=== PATIENT | male | born 1980 | race Caucasian/White ===

== ENCOUNTER 2020-09-16 13:47 | Inpatient (IN) | payer OTHER, SELFPAY ==
[2020-09-16] VITALS (7 sets, daily range): BP systolic 105–113; BP diastolic 47–59; PULSE 74–89; RESP 13–22; TEMP 36.4–36.6; O2SAT 86–97; BMI 24.4
--- NOTE | ~2020-09-16 | XR_ITS ---
EXAMINATION: XR CHEST CLINICAL INFORMATION: Dyspnea COMPARISON: None TECHNIQUE: AP upright portable view of the chest FINDINGS: No significant abnormality is noted involving the heart, lungs, mediastinum, bony thorax or soft tissues. XR/XR chest 1V IMPRESSION: Unremarkable examination.
--- NOTE | 2020-09-16 14:16 | ED_ITS ---
HPI - SOB/Dyspnea General Chief Complaint: Dyspnea Stated Complaint: DIFF BREATHING Time Seen by Provider: 09/16/20 14:15 Source: patient Mode of arrival: ambulatory Limitations: no limitations History of Present Illness HPI Narrative: 39 yo male with no sig PMH other than pleurisy one time for which he used inhaler while incarcerated noted that since last night feels short of breath and chest tightness, initial sats 86% on RA on arrival. MD elicited complaint: shortness of breath Onset (ago): day(s) (1) Timing: constant Severity: severe Exacerbating factors: exertion and coughing Relieving factors: oxygen Associated symptoms: chest pain, pain with inspiration, cough and wheezing Treatment prior to arrival: none Related Data Home Medications Medication Instructions Recorded Confirmed No Known Home Meds 09/16/20 09/16/20 Allergies Allergy/AdvReac Type Severity Reaction Status Date / Time No Known Allergies Allergy Verified 09/16/20 13:57 Review of Systems Review of Systems: Constitutional : No Fever, No Chills ENT/Mouth : No sore throat, No Rhinorrhea, No Swallowing Difficulty Eyes: No Eye Pain, No Swelling, No Redness Cardiovascular : pos Chest Pain, positive SOB, No Orthopnea, no Edema Respiratory : pos Cough, No Sputum, pos Wheezing, positive dyspnea Gastrointestinal : No Nausea, No Vomiting, No Diarrhea, No abdominal Pain, No Hematochezia, No Melena Genitourinary : No Dysuria, No Urinary Frequency, No Hematuria Musculoskeletal : No joint pain, No Myalgias Skin : No Skin Lesions, No rash Neuro : No Weakness, No Numbness, No Dizziness, No Headache Psych : No Anxiety/Panic, No Depression Heme/Lymph: No Bruising, No Lymphadenopathy Endocrine : No Polyuria, No Polydipsia All other systems reviewed and are negative [facility] Past Medical History Attestation statement: The following information was validated with the patient. Medical History Pleurisy Social History Social History (Updated 09/16/20 @ 14:33 by Ebony Trejo DO) Smoking Status: Current every day smoker Use of substances other than those prescribed or required for medical reasons: Yes Substance Use Type: Prescription Drugs Substance Use Frequency: Daily Advance Directives: No Advance Directives Information Provided: No Physical Exam Vital Signs: Vital Signs: Last Vital Signs Temp 97.5 F 09/16/20 13:58 Pulse 84 09/16/20 15:36 Resp 14 09/16/20 15:28 BP 113/53 L 09/16/20 15:28 Pulse Ox 92 09/16/20 15:28 Oxygen Flow Rate 3 09/16/20 13:58 Body Mass Index 24.4 Appearance: Alert. Oriented X3. Anxious moderate acute distress. Eyes: Pupils equal, round and reactive to light. ENT: Cyanotic lips Neck: Normal inspection. Neck supple. CVS: tachycardic heart rate and rhythm. Pulses normal. Respiratory: moderate respiratory distress single words, pursed lips, retractions. Breath sounds decreased throughout, wheezes insp and exp audible wheezes Abdomen: Soft and nontender. Skin: Skin warm and diaphoretic. pale skin color. Normal skin turgor. Extremities: No lower extremity edema. No calf ttp Neuro: Oriented X 3. No motor deficit. No sensory deficit. Course Course Course Narrative: still wheezing but not hypoxic, repeat 5mg neb ordered 93% on neb treatment patient still tight and wheezing after treatments at this time will admit for further workup MDM - SOB/Dyspnea MDM Narrative Medical decision making narrative: 39 yo male with with hx of pleurisy and at that time used INH in the past - at this time will need labs, CXR, IV steroids for sig wheezing + smoker, COVID test, EKG, IV steroids, hour long 10mg neb, IV magnesium, dispo per results and improvement Lab Data Result diagrams: 09/16/20 14:26 09/16/20 14:26 Labs: Lab Results 09/16/20 09/16/20 09/16/20 Range/Units 14:06 14:26 14:26 WBC 9.8 (4.8-10.8) X10*3/uL RBC 4.38 L (4.60-5.80) X10*6/uL Hgb 13.6 L (14.0-18.0) g/dl Hct 41.0 L (42-52) % MCV 93.6 (80-98) fL MCH 31.1 (27.0-33.0) pg MCHC 33.2 (31.0-36.0) g/dl RDW 12.0 (11.0-16.0) % Plt Count 154 L (160-400) X10*3/uL MPV 12.2 (9.4-12.4) fL Immature Gran % (Auto) 0.2 (0.0-0.4) % Neut % (Auto) 58.2 (45-73) % Lymph % (Auto) 21.6 (20-40) % [place] % (Auto) 7.3 (2-11) % Eos % (Auto) 12.3 H (0-4) % Baso % (Auto) 0.4 (0-2) % Lymph # (Auto) 2.1 (1.2-4.9) X10*3/uL [place] # (Auto) 0.7 (0.1-1.2) X10*3/uL Eos # (Auto) 1.2 H (0.0-0.4) X10*3/uL Baso # (Auto) 0.0 (0.0-0.2) X10*3/uL Abs Immat Gran (auto) 0.02 (0.00-0.03) X10*3/uL Absolute Neuts (auto) 5.7 (2.0-8.3) X10*3/uL Absolute Nucleated RBC 0.000 (0.0-0.012) X10*3/uL Nucleated RBC % (auto) 0.0 (0.0-0.2) /100WBC D-Dimer NG/ML Hold Blue Top Sodium 140 (135-145) mmol/L Potassium 4.1 (3.3-5.1) mmol/L Chloride 102 (96-108) mmol/L Carbon Dioxide 31 H (22-29) mmol/L Anion Gap 11 L (12-20) BUN 14 (9-16) mg/dL Creatinine 0.82 (0.5-1.4) mg/dL Estim Creat Clear Calc 115.3 Estimated GFR > 60 Random Glucose 98 (60-115) mg/dL Calcium 9.1 (8.4-10.2) mg/dL Magnesium (1.6-2.6) mg/dL Total Bilirubin (0.0-1.0) mg/dL Direct Bilirubin (0.0-0.5) mg/dL AST (5-37) U/L ALT (0-40) U/L Alkaline Phosphatase (39-117) U/L Total Protein (6.5-8.0) g/dL Albumin (3.5-5.0) g/dL Coronavirus (PCR) NEGATIVE (Negative) Influenza Type A (PCR) NEGATIVE (Negative) Influenza Type B (PCR) NEGATIVE (Negative) RSV RNA Qual (PCR) NEGATIVE (Negative) 09/16/20 09/16/20 Range/Units 14:26 14:26 WBC (4.8-10.8) X10*3/uL RBC (4.60-5.80) X10*6/uL Hgb (14.0-18.0) g/dl Hct (42-52) % MCV (80-98) fL MCH (27.0-33.0) pg MCHC (31.0-36.0) g/dl RDW (11.0-16.0) % Plt Count (160-400) X10*3/uL MPV (9.4-12.4) fL Immature Gran % (Auto) (0.0-0.4) % Neut % (Auto) (45-73) % Lymph % (Auto) (20-40) % [place] % (Auto) (2-11) % Eos % (Auto) (0-4) % Baso % (Auto) (0-2) % Lymph # (Auto) (1.2-4.9) X10*3/uL [place] # (Auto) (0.1-1.2) X10*3/uL Eos # (Auto) (0.0-0.4) X10*3/uL Baso # (Auto) (0.0-0.2) X10*3/uL Abs Immat Gran (auto) (0.00-0.03) X10*3/uL Absolute Neuts (auto) (2.0-8.3) X10*3/uL Absolute Nucleated RBC (0.0-0.012) X10*3/uL Nucleated RBC % (auto) (0.0-0.2) /100WBC D-Dimer < 200 NG/ML Hold Blue Top SEE NOTE Sodium (135-145) mmol/L Potassium (3.3-5.1) mmol/L Chloride (96-108) mmol/L Carbon Dioxide (22-29) mmol/L Anion Gap (12-20) BUN (9-16) mg/dL Creatinine (0.5-1.4) mg/dL Estim Creat Clear Calc Estimated GFR Random Glucose (60-115) mg/dL Calcium (8.4-10.2) mg/dL Magnesium 1.9 (1.6-2.6) mg/dL Total Bilirubin 0.4 (0.0-1.0) mg/dL Direct Bilirubin < 0.2 (0.0-0.5) mg/dL AST 22 (5-37) U/L ALT 13 (0-40) U/L Alkaline Phosphatase 123 H (39-117) U/L Total Protein 7.5 (6.5-8.0) g/dL Albumin 4.4 (3.5-5.0) g/dL Coronavirus (PCR) (Negative) Influenza Type A (PCR) (Negative) Influenza Type B (PCR) (Negative) RSV RNA Qual (PCR) (Negative) ECG Data Attestation: I personally reviewed and interpreted this ECG as follows: ECG interpretation date: 09/16/20 ECG interpretation time: 15:03 Interpretation: Rate: 80 Rhythm: NSR Street: left Normal P waves. Normal TONI. Normal QRS complex. ST T wave : artifact nonspecific no YOSELIN qTC: normal prior studies: none The study has been interpreted contemporaneously by me. . Critical Care Time Critical Care Time Critical Care Time: Yes Total Critical Care Time: 60 Attestation: repeat hour long nebs I attest to this time spent taking care of the patient Discharge Plan Discharge Clinical Impression: Acute dyspnea, Hypoxia, Wheezing Patient Disposition: Admitted As Inpatient
--- NOTE | 2020-09-16 14:21 | ECG_ITS ---
Test Reason : SOB Blood Pressure : / mmHG Vent. Rate : 080 BPM Atrial Rate : 080 BPM P-R Int : 160 ms QRS Dur : 094 ms QT Int : 382 ms P-R-T Axes : 051 -56 042 degrees QTc Int : 440 ms Normal sinus rhythm with sinus arrhythmia Possible Left atrial enlargement Incomplete right bundle branch block Left anterior fascicular block Abnormal ECG No previous ECGs available Referred By: Ebony Trejo Electronically Signed By:NIGEL WORKMAN
[2020-09-16] MEDS: Albuterol Sulfate (0.083%) 2.5 MG/3 ML VIAL.NEB 10 MG INHALE (14:31)
[2020-09-16 14:32] LABS: MANUAL DIFF FLAG NO
[2020-09-16] MEDS: methylPREDNISolone Sod Succ 125 MG/2 ML VIAL IVPUSH (14:39)
[2020-09-16] MEDS: Magnesium Sulfate/H2O 2 GM/50 ML PIGGYBACK IV (14:39)
[2020-09-16 14:41] LABS: Basophils Percent Auto 0.4 % (0-2); Eosinophils Absolute Auto 1.2 X10*3/uL (0.0-0.4); Eosinophils Percent Auto 12.3 % (0-4); Hemoglobin 13.6 g/dl (14.0-18.0); Imm Gran Abs Auto 0.02 X10*3/uL (0.00-0.03); Imm Gran Pct Auto 0.2 % (0.0-0.4); Lymphocytes Absolute Auto 2.1 X10*3/uL (1.2-4.9); Lymphocytes Percent Auto 21.6 % (20-40); Mean Corpuscular HGB Conc 33.2 g/dl (31.0-36.0); Mean Corpuscular Hemoglobin 31.1 pg (27.0-33.0); Mean Corpuscular Volume 93.6 fL (80-98); Mean Platelet Volume 12.2 fL (9.4-12.4); Monocytes Absolute Auto 0.7 X10*3/uL (0.1-1.2); Monocytes Percent Auto 7.3 % (2-11); Neutrophils Absolute Auto 5.7 X10*3/uL (2.0-8.3); Neutrophils Percent Auto 58.2 % (45-73); Platelet Count 154 X10*3/uL (160-400); Red Blood Count 4.38 X10*6/uL (4.60-5.80); White Blood Count 9.8 X10*3/uL (4.8-10.8)
[2020-09-16 14:50] LABS: Influenza A PCR NEGATIVE (Negative); Influenza B PCR NEGATIVE (Negative); Resp Syncy Virus RNA Qual PCR NEGATIVE (Negative); SARS COV2 PCR INHOUSE NEGATIVE (Negative)
[2020-09-16 15:07] LABS: Anion Gap 11 (12-20); Blood Urea Nitrogen 14 mg/dL (9-16); Calcium 9.1 mg/dL (8.4-10.2); Carbon Dioxide 31 mmol/L (22-29); Chloride 102 mmol/L (96-108); Creatinine Clr Calc Pharmacy 115.3; Estimated Glomerular Filt Rate > 60; Glucose Random 98 mg/dL (60-115); Potassium 4.1 mmol/L (3.3-5.1); Sodium 140 mmol/L (135-145)
[2020-09-16 15:09] LABS: Alanine Aminotransferase 13 U/L (0-40); Albumin Level 4.4 g/dL (3.5-5.0); Alkaline Phosphatase 123 U/L (39-117); Aspartate Amino Transferase 22 U/L (5-37); Bilirubin Direct < 0.2 mg/dL (0.0-0.5); Bilirubin Total 0.4 mg/dL (0.0-1.0); Magnesium 1.9 mg/dL (1.6-2.6); Total Protein 7.5 g/dL (6.5-8.0)
[2020-09-16 15:16] LABS: D Dimer < 200 NG/ML
--- NOTE | 2020-09-16 15:25 | PC.NURSE ---
#20 IN R AC, MAG RUNNING. TOLERATED NEB TX WELL, WHEEZING STILL AUDIBLE THROUGHOUT.
--- NOTE | 2020-09-16 15:31 | PC.NURSE ---
SPO2 ON RA 90%. PLACED ON 2L VIA NC
[2020-09-16] MEDS: Albuterol Sulfate (0.083%) 2.5 MG/3 ML VIAL.NEB 5 MG INHALE (15:36)
--- NOTE | 2020-09-16 17:01 | P.HPHOSP_ITS ---
History of Present Illness Date of Service: 09/16/20 Chief Complaint: Shortness of breath 39 year old man presenting to the ED With increased shortness of breath over last 24 hours. Denies any history of asthma or COPD however he does smoke a pack cigarettes a day. He denies any illicit drug use uses approximately 30 mg Percocet twice a day and has been doing this for several months. He denies any recent illness, recent travel, fever chills nausea, vomiting, diarrhea. Did report a cough with green sputum. Chest x-ray was negative for any consolidation or effusion. He received albuterol, IV magnesium, Solu-Medrol in the ER. he will be admitted for further management and treatment of acute respiratory failure. Review of Systems Review of Systems: Denies any recent fever chills or decrease in appetite respiratory See HPI cardiovascular denies chest pain gastrointestinal denies any dysphagia abdominal pain nausea vomiting or diarrhea genitourinary denies any dysuria frequency or hematuria musculoskeletal denies any joint pain or swelling neuropsych denies any weakness or seizures all other systems reviewed are negative [facility] Medical History Pleurisy Pertinent family history: no cardiac or respiratory disease Social History (Updated 09/16/20 @ 17:38 by Donya Nuñez NP) Smoking Status: Current every day smoker Packs Per Day: 1 Use of substances other than those prescribed or required for medical reasons: Yes Substance Use Type: Prescription Drugs Substance Use Type Other:: uses 2-30 mg tabs of Percocet daily Substance Use Frequency: Daily Advance Directives: No Advance Directives Information Provided: No Meds Allergies Allergy/AdvReac Type Severity Reaction Status Date / Time No Known Allergies Allergy Verified 09/16/20 13:57 Active Medications: Current Medications Generic Name Dose Route Start Last Admin Trade Name Freq PRN Reason Stop Dose Admin Pharmacy Consult 1 each 09/16/20 14:21 Consult Rx Perform Med Rec MISCELLANE ONCE PRN Consult order Home Medications Medication Instructions Recorded Confirmed Last Taken Type No Known Home Meds 09/16/20 09/16/20 Unknown History Physical Exam Vital Signs and Narrative: Vital Signs: Last Vital Signs Temp 97.5 F 09/16/20 13:58 Pulse 84 09/16/20 15:36 Resp 14 09/16/20 15:28 BP 113/53 L 09/16/20 15:28 Pulse Ox 92 09/16/20 15:28 Oxygen Flow Rate 3 09/16/20 13:58 Body Mass Index 24.4 Appearing in no acute distress head is normocephalic atraumatic eyes pupils are PERRLA sclera is anicteric mouth throat mucous membranes are intact and moist neck is supple no lymphadenopathy, no JVD noted lung sounds expiratory wheezes heart regular rate rhythm, clear S1, S2 positive bowel sounds, abdomen is soft, nontender neuro patient is alert x3, no focal deficits Results Labs CBC and Chem 7: 09/16/20 14:26 09/16/20 14:26 Labs: Laboratory Results - last 24 hr 09/16/20 09/16/20 09/16/20 14:06 14:26 14:26 MCV 93.6 MCH 31.1 MCHC 33.2 RDW 12.0 Plt Count 154 L MPV 12.2 Immature Gran % (Auto) 0.2 Neut % (Auto) 58.2 Lymph % (Auto) 21.6 [place] % (Auto) 7.3 Eos % (Auto) 12.3 H Baso % (Auto) 0.4 Lymph # (Auto) 2.1 [place] # (Auto) 0.7 Eos # (Auto) 1.2 H Baso # (Auto) 0.0 Abs Immat Gran (auto) 0.02 Absolute Neuts (auto) 5.7 Absolute Nucleated RBC 0.000 Nucleated RBC % (auto) 0.0 D-Dimer Hold Blue Top Anion Gap 11 L Estim Creat Clear Calc 115.3 Estimated GFR > 60 Random Glucose 98 Calcium 9.1 Magnesium Total Bilirubin Direct Bilirubin AST ALT Alkaline Phosphatase Total Protein Albumin Coronavirus (PCR) NEGATIVE Influenza Type A (PCR) NEGATIVE Influenza Type B (PCR) NEGATIVE RSV RNA Qual (PCR) NEGATIVE 09/16/20 09/16/20 14:26 14:26 MCV MCH MCHC RDW Plt Count MPV Immature Gran % (Auto) Neut % (Auto) Lymph % (Auto) [place] % (Auto) Eos % (Auto) Baso % (Auto) Lymph # (Auto) [place] # (Auto) Eos # (Auto) Baso # (Auto) Abs Immat Gran (auto) Absolute Neuts (auto) Absolute Nucleated RBC Nucleated RBC % (auto) D-Dimer < 200 Hold Blue Top SEE NOTE Anion Gap Estim Creat Clear Calc Estimated GFR Random Glucose Calcium Magnesium 1.9 Total Bilirubin 0.4 Direct Bilirubin < 0.2 AST 22 ALT 13 Alkaline Phosphatase 123 H Total Protein 7.5 Albumin 4.4 Coronavirus (PCR) Influenza Type A (PCR) Influenza Type B (PCR) RSV RNA Qual (PCR) Imaging Radiologist's Impressions: Impressions Chest X-Ray 09/16/20 14:22 IMPRESSION: Unremarkable examination. Assessment and Plan (1) Acute dyspnea: Status: Acute (2) Hypoxia: Status: Acute (3) Wheezing: Status: Acute 39 year acute hypoxic respiratory failure secondary to possibly new onset asthma, COPD, bronchitis versus allergy symptoms. Chest x-ray is negative for consolidation or effusion. Will admit for further workup. Acute hypoxic respiratory failure. No history of asthma or COPD however patient is a 1 pack-a-day smoker. May also be related to allergy symptoms. -Solu-Medrol, duo nebs every 4 hours while awake -supplemental oxygen if needed -no antibiotics for now as patient does not have any fever, leukocytosis, negative chest x-ray and Minimal sputum production -urine drug screen pending Smoker. -nicotine replacement -discussed the importance of smoking cessation. Prescription drug use. Reports that he uses street Percocets, denies other illicit drugs. -care team consultation DVT prophylaxis with early ambulation Attending: Dr. Garcia
--- NOTE | 2020-09-16 17:35 | PM.EVENT ---
Event Note Date of Service: 09/16/20 Event Note: Patient seen and examined independently and was present during izquierdo portion of E/M service. Agree with midlevel's history, physical, assessment, and plan. 39M presented with sob acut ehypoxic rspiratory failure due to asthma exacerbation steroids, nebs
[2020-09-16] MEDS: Albuterol/Iprat 2.5/0.5MG 3 ML AMPUL.NEB INHALE (20:07)
[2020-09-16 20:27] LABS: Amphetamine Screen Urine Not Detected (Not Detect); Barbiturates, Urine Not Detected (Not Detect); Benzodiazepines Screen Urine Not Detected (Not Detect); Cannabinoid Screen Urine Not Detected (Not Detect); Cocaine Screen Urine Not Detected (Not Detect); Opiate Screen Urine POSITIVE (Not Detect); Phencyclidine Screen Urine Not Detected (Not Detect)
[2020-09-16] MEDS: methylPREDNISolone Sod Succ 40 MG/ML VIAL IVPUSH (21:35)
[2020-09-17] VITALS (11 sets, daily range): BP systolic 102–120; BP diastolic 32–59; PULSE 53–95; RESP 12–20; TEMP 36.3–37.1; O2SAT 90–99
[2020-09-17] MEDS: 0.9 % Sodium Chloride Flush 3 ML SYRINGE IVFLUSH ×4 (00:38→22:05)
[2020-09-17] MEDS: methylPREDNISolone Sod Succ 40 MG/ML VIAL IVPUSH ×2 (05:10→17:38)
[2020-09-17 06:48] LABS: Basophils Percent Auto 0.1 % (0-2); Hematocrit 37.4 % (42-52); Hemoglobin 12.7 g/dl (14.0-18.0); Imm Gran Abs Auto 0.05 X10*3/uL (0.00-0.03); Imm Gran Pct Auto 0.5 % (0.0-0.4); Lymphocytes Absolute Auto 0.7 X10*3/uL (1.2-4.9); Lymphocytes Percent Auto 6.3 % (20-40); MANUAL DIFF FLAG SCAN; Mean Corpuscular Hemoglobin 30.9 pg (27.0-33.0); Mean Platelet Volume 12.8 fL (9.4-12.4); Monocytes Absolute Auto 0.2 X10*3/uL (0.1-1.2); Monocytes Percent Auto 2.2 % (2-11); Neutrophils Absolute Auto 9.9 X10*3/uL (2.0-8.3); Neutrophils Percent Auto 90.9 % (45-73); Platelet Count 155 X10*3/uL (160-400); Red Blood Count 4.11 X10*6/uL (4.60-5.80); Red Cell Distribution Width 11.8 % (11.0-16.0); SCAN SMEAR FLAG 1; White Blood Count 10.9 X10*3/uL (4.8-10.8)
[2020-09-17 06:55] LABS: Anion Gap 11 (12-20); Blood Urea Nitrogen 14 mg/dL (9-16); Calcium 9.2 mg/dL (8.4-10.2); Carbon Dioxide 27 mmol/L (22-29); Chloride 104 mmol/L (96-108); Estimated Glomerular Filt Rate > 60; Glucose Random 134 mg/dL (60-115); Potassium 4.1 mmol/L (3.3-5.1); Sodium 138 mmol/L (135-145)
[2020-09-17 07:36] LABS: SLIDE REVIEW VERIFIED
--- NOTE | 2020-09-17 09:33 | HO.PM.IMPN ---
Subjective Subjective Date of Service: 09/17/20 <Donya Nuñez NP - Last Filed: 09/17/20 09:37> 09/17/20 <Jerry Hernandez MD - Last Filed: 09/17/20 17:40> Interval History: Follow up hypoxia. Feels better, less wheezing Coughing now <Donya Nuñez NP - Last Filed: 09/17/20 09:37> Physical Exam Vital Signs: Vital Signs: Last Vital Signs Temp 98.3 F 09/17/20 07:53 Pulse 55 09/17/20 07:53 Resp 20 09/17/20 07:53 BP 104/59 L 09/17/20 07:53 Pulse Ox 95 09/17/20 07:53 Oxygen Flow Rate 3 09/16/20 13:58 Body Mass Index 24.4 <Donya Nuñez NP - Last Filed: 09/17/20 09:37> Appearing in no acute distress lung sounds expiratory wheezing heart regular rate rhythm, clear S1, S2 positive bowel sounds, abdomen is soft, nontender neuro patient is alert x3, no focal deficits <Donya Nuñez NP - Last Filed: 09/17/20 09:37> Objective Data Current Medications Generic Name Dose Route Start Last Admin Trade Name Freq PRN Reason Stop Dose Admin Acetaminophen 650 mg 09/16/20 17:44 Acetaminophen 325 Mg Tablet PO Q6H PRN Pain, Mild (Pain Scale 1-3) Albuterol/Ipratropium 3 ml 09/16/20 20:00 09/16/20 20:07 Albuterol/Iprat 2.5/0.5mg 3 Ml Ampul.Neb INHALE 3 ml RQ4H WHILE AWAKE JACQUELINE Administration Methylprednisolone Sodium Succinate 40 mg 09/16/20 17:45 09/17/20 05:10 Methylprednisolone Sod Succ 40 Mg/Ml Vial IVPUSH 40 mg Q12H JACQUELINE Administration Nicotine Polacrilex 2 mg 09/16/20 17:44 Nicotine Polacrilex 2 Mg Gum BUCCAL Q1H PRN withdrawl Ondansetron HCl 4 mg 09/16/20 17:44 Ondansetron Hcl 4 Mg/2 Ml Vial IVPUSH Q8H PRN Nausea and Vomiting Pharmacy Consult 1 each 09/16/20 14:21 Consult Rx Perform Med Rec MISCELLANE ONCE PRN Consult order Sodium Chloride 3 ml 09/17/20 00:00 09/17/20 08:20 0.9 % Sodium Chloride Flush 3 Ml Syringe IVFLUSH 3 ml QSHIFT JACQUELINE Administration <Donya Nuñez NP - Last Filed: 09/17/20 09:37> Labs CBC & Chem 7: : 09/17/20 05:52 09/17/20 05:52 <Donya Nuñez NP - Last Filed: 09/17/20 09:37> Assessment and Plan (1) Acute dyspnea: Status: Acute <Donya Nuñez NP - Last Filed: 09/17/20 09:37> Assessment and Plan: 39 year acute hypoxic respiratory failure secondary to possibly new onset asthma, COPD, bronchitis versus allergy symptoms. Chest x-ray is negative for consolidation or effusion. Acute hypoxic respiratory failure. No history of asthma or COPD however patient is a 1 pack-a-day smoker. May also be related to allergy symptoms. Walking sat dropped to 85%, back up to the 90's with rest. -Solu-Medrol, duo nebs every 4 hours while awake -supplemental oxygen if needed -no antibiotics for now as patient does not have any fever, leukocytosis, negative chest x-ray and Minimal sputum production -add tesselon for cough Smoker. -nicotine replacement -discussed the importance of smoking cessation. Prescription drug use. Reports that he uses street Percocets, denies other illicit drugs. -care team consultation DVT prophylaxis with early ambulation DISPO: likely home tomorrow with steroid and albuterol Attending: Dr. Hernandez <Donya Nuñez NP - Last Filed: 09/17/20 09:37> (2) Hypoxia: Status: Acute <Donya Nuñez NP - Last Filed: 09/17/20 09:37> (3) Wheezing: Status: Acute <Donya Nuñez NP - Last Filed: 09/17/20 09:37> Assessment and Plan: A 7 examined the patient independently and discussed the finding with a mid-level provider. I agree with the assessment and plan as outlined above patient is still with bronchospasm wheezing will continue IV steroid overnight and reassess in the morning for oral prednisone and ultimately discharged home. We discussed the need for smoking cessation. Otherwise agree with above. <Jerry Hernandez MD - Last Filed: 09/17/20 17:40>
--- NOTE | 2020-09-17 10:18 | MHC.CM.PN ---
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 he is still having low o2 sats at rest he is active indpeent in [place] [employer] and mobility discharge plan home no services pcp discussed with patient the importance pof choosing a pcp and margaret to go about and get one transportation family
[2020-09-17] MEDS: Albuterol/Iprat 2.5/0.5MG 3 ML AMPUL.NEB INHALE ×3 (11:01→19:45)
[2020-09-17] MEDS: Benzonatate 100 MG CAPSULE PO (11:32)
--- NOTE | 2020-09-17 12:00 | MHC.RECOVRN ---
39 year old male presented to [facility] ED on 09/16, ambulatory, due to Pt reports that he may have had covid about 4 months ago but was never tested. He today presents with significant shortness of breath with initial sats reading 86% on room air. He states that it hurts in the center of his chest with inspiration and he feels as though someone is sitting on his chest. Sats improving to 96% on 3liters of 02 per supervisor lime. Upon evaluation, pt also using 30 mg Percocet twice a day x several months. Pt subsequently admitted for treatment of acute respiratory failure.? T/w met with pt in 372 after consult placed to CARE Team for prescription drug abuse. Pt states I take them once in a while, not every?day like I used to. Pt describes use as sporadic and states I'm fine. I don't need any help or anything. Pt reports hx of Suboxone to get off of them last time. But it's not like that now. ? Recovery resources were discussed as well as MOUD. Pt declines referrals and resources at this time. Pt given t/w card if he would like to discuss further or has any questions.?
[2020-09-18 03:57] VITALS: BP 117/61; PULSE 71; RESP 20; TEMP 37; O2SAT 93
[2020-09-18] MEDS: Benzonatate 100 MG CAPSULE PO (04:16)
[2020-09-18] MEDS: methylPREDNISolone Sod Succ 40 MG/ML VIAL IVPUSH (06:21)
[2020-09-18 07:44] VITALS: PULSE 88; O2SAT 95
[2020-09-18] MEDS: Albuterol/Iprat 2.5/0.5MG 3 ML AMPUL.NEB INHALE ×2 (07:44→11:29)
[2020-09-18 08:00] VITALS: BP 123/58; PULSE 87; RESP 19; TEMP 36.9; O2SAT 93
[2020-09-18] MEDS: 0.9 % Sodium Chloride Flush 3 ML SYRINGE IVFLUSH (08:45)
[2020-09-18 11:25] VITALS: BP 129/69; PULSE 79; RESP 20; TEMP 37.2; O2SAT 93
[2020-09-18 11:30] VITALS: PULSE 79; O2SAT 93
--- NOTE | 2020-09-18 11:59 | PM.DS ---
DS: Providers Provider Date of Service: 09/24/20 Date of admission: 09/16/20 17:44 Primary care physician: None Physician Consults: 09/16/20 17:44 Consult to Care Team Routine Comment: Reason for consultation: prescription drug abuse DS: Diagnosis Discharge Diagnosis (1) Acute dyspnea: Status: Acute (2) Hypoxia: Status: Acute (3) Wheezing: Status: Acute DS: Medications Discharge Medications Home Medications: Home Medications Medication Instructions Recorded Confirmed No Known Home Meds 09/16/20 09/16/20 DS: Summary Hospital Course Hospital Course: 39 year old man presenting to the ED With increased shortness of breath over last 24 hours. Denies any history of asthma or COPD however he does smoke a pack cigarettes a day. He denies any illicit drug use uses approximately 30 mg Percocet twice a day and has been doing this for several months. He denies any recent illness, recent travel, fever chills nausea, vomiting, diarrhea. Did report a cough with green sputum. Chest x-ray was negative for any consolidation or effusion. He received albuterol, IV magnesium, Solu-Medrol in the ER. he will be admitted for further management and treatment of acute respiratory failure. Hospital course:The patient was admtted with exacerbation of astham complicated by hypoxia and was treated with IV steroid and bronchodilators by Neb and has significantly better, no wheezing, no sob and no hypoxia, lung clear. Will discharge with Prednisone and Albuterol HFA and advise to stop smoking. Time Spent with Patient Time attestation: Total time spent providing and/or coordinating discharge services: Discharge coordination time: Greater than 30 minutes Physical Exam Vital Signs: Vital Signs: Last Vital Signs Temp 99.0 F 09/18/20 11:25 Pulse 79 09/18/20 11:30 Resp 20 09/18/20 11:25 BP 129/69 09/18/20 11:25 Pulse Ox 93 09/18/20 11:25 Oxygen Flow Rate 3 09/16/20 13:58 Body Mass Index 24.4 Constitutional Awake and Alert, No apparent distress Neck Supple, No lymphadenopathy Cardiovascular RRR, No M/R/G, S1 S2, No S3 S4, No pedal edema Respiratory Lungs clear, No respiratory distress Gastrointestinal Non tender, Non-distended Skin No rash Neurological Alert & oriented x3 Psychological Appropriate affect Discharge Plan Discharge Anticipated Discharge Date/Time: 09/18/20 11:48 Patient Disposition: Home, Self-Care Discharge Diagnosis: Athma exacerbation Referrals: Physician,None [Primary Care Provider] - 1 Week Discharge Medications: New albuterol sulfate 90 mcg/actuation HFA aerosol inhaler 2 inh inhalation Q6-8H PRN (Reason: shortness of breath or wheezing) Qty: 18 RF: 2 prednisone 20 mg tablet 40 mg PO DAILY Qty: 8 RF: 0 Discharge Orders: Discharge Order (Routine); Ordered 09/18/20 Ordered By: Jerry Hernandez Diet: advance to usual diet Activity on Discharge: As tolerated Stand Alone Forms: Patient Portal Discharge page, Work/School Release Care Plan Goals: Prevent rehospitalization and flat of asthma. Health Concerns: Chronic tobacco use, asthma. Plan of Treatment: Take prednisone and use inhaler as director avoid smoking. Assessment: Asthma exacerbation that has not improved and will be treated further with inhalers and prednisone as stated above. Go see your doctor in a week Discharge Date/Time: 09/18/20 13:16
--- NOTE | 2020-09-18 12:11 | MHC.CM.PN ---
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 Pt declines referrals and resources at this time. Pt given t/w card if he would like to discuss further or has any questions.? DISCHARGE PLAN HOME NO SERVICES PCP PATIENT WAS INSTRUCTED IN HOW TO OBTAIN PCP AND ENCOURAGED FTO DO SO SOONER THAN LATER. TRANSPORTATION PATIENT TO SELF ARRANEG
== END 2020-09-18 13:16 | disposition home or self-care (01) | DRG 141 ==
LOC: HO.ED 16:03 → HO.EDOVER 17:49 → HO.S3 09-17 00:11
PROVIDERS: Admitting Provider Nurse Practitioner Acute Care; Emergency Provider Emergency Medicine; Visit Provider Internal Medicine
DX: J45.901 Unspecified asthma with (acute) exacerbation (principal); J96.01 Acute respiratory failure with hypoxia; F17.210 Nicotine dependence, cigarettes, uncomplicated; Z20.822 Contact with and (suspected) exposure to COVID-19; Z71.6 Tobacco abuse counseling
CPT/HCPCS: 0241U; 36415; 71045; 80048; 80076; 80307; 83735; 85025; 85379; 93005; 94640; 94644; 96374; 99285; 99291; J2920; J2930; J3475

== ENCOUNTER 2020-12-23 10:55 | Emergency (ER) | payer OTHER, SELFPAY | END 2020-12-23 13:04 | disposition left against medical advice (07) | PROVIDERS: Emergency Provider Emergency Medicine | DX: R06.02 Shortness of breath (principal); G43.909 Migraine, unspecified, not intractable, without status migrainosus ==

== ENCOUNTER 2021-03-21 23:30 | Emergency (ER) | payer OTHER, SELFPAY ==
[2021-03-21 23:42] VITALS: BP 115/78; PULSE 95; RESP 16; TEMP 36.3; O2SAT 92; BMI 23.8
--- NOTE | 2021-03-21 23:45 | PC.NURSE ---
at bedside for primary eval.
--- NOTE | 2021-03-21 23:54 | ED.GENADULT ---
HPI - General Adult General Chief complaint: Dyspnea Stated complaint: SOB Time Seen by Provider: 03/21/21 23:41 Source: patient Mode of arrival: ambulatory Limitations: no limitations History of Present Illness HPI narrative: 40-year-old male with history of asthma who presents emergency department for evaluation of shortness of breath and cough. Patient states that for the past 3 days he has had a cough which is nonproductive. The cough is worse at night. States that he has been using his albuterol inhaler frequently with only minimal relief a shortness of breath. He denied fever, chills, nausea, vomiting, chest pain, abdominal pain, diarrhea, myalgias, arthralgias or loss of sense of taste or smell. Patient has not been vaccinated for COVID-19. Patient continues to smoke 1 pack of cigarettes per day. He states that he only has an albuterol inhaler does not use a steroid inhaler. Related Data Previous Rx's Medication Instructions Recorded albuterol sulfate 90 mcg/actuation 2 inh INHALATION Q6-8H PRN #18 g 09/18/20 aerosol inhaler prednisone 20 mg tablet 40 mg PO DAILY #8 tab 09/18/20 albuterol sulfate 90 mcg/actuation 2 puff INHALATION Q4-6H PRN #8.5 g 03/22/21 aerosol inhaler fluticasone propionate 220 1 puff INHALATION BID #12 g 03/22/21 mcg/actuation HFA aerosol inhaler (Flovent HFA) prednisone 20 mg tablet 60 mg PO DAILY 5 Days #15 tab 03/22/21 Allergies Allergy/AdvReac Type Severity Reaction Status Date / Time No Known Allergies Allergy Verified 03/21/21 23:51 Review of Systems Review of Systems: Yes all other systems are reviewed and are negative [facility] Past Medical History [facility] Narrative: Past medical history: Asthma. Past surgical history: None. Social history: The patient smokes 1 pack of cigarettes per day times 20 years. The patient denies alcohol use. He denies drug use. Medical History Pleurisy Social History Social History (Updated 09/16/20 @ 17:38 by Donya Nuñez NP) Household Members: Significant Other Housing: Apartment Cigarette Packs Per Day: 1 Cigarettes Per Day: 20.0 Substance Use Type: Prescription Drugs Advance Directives: No service: No Current occupational status: employed Physical Exam Vital Signs: Vital Signs: Last Vital Signs Temp 97.4 F 03/21/21 23:42 Pulse 95 03/21/21 23:42 Resp 16 03/21/21 23:42 BP 115/78 03/21/21 23:42 Pulse Ox 92 03/21/21 23:42 Body Mass Index 23.8 Const: General: cooperative and no acute distress Orientation/consciousness: oriented to person and oriented to place Limitations: no limitations HENMT: Head: Yes normal to inspection, Yes normocephalic and Yes atraumatic Ears: external ears normal General nose exam: Normal external nose present Face and sinus: Yes normal facial exam Mouth: Normal oral and palatal mucosa present Throat: Yes posterior oropharynx normal Eyes: General: appearance normal, both eyes and all related structures Pupils: Equal, round and reactive pupils present Neck: Neck: Yes normal visual inspection, Yes no lymphadenopathy, Yes trachea midline and Yes supple Chest: Chest palpation & inspection: normal inspection of the chest and normal palpation of entire chest wall Resp: Effort & Inspection: normal respiratory effort and able to speak in complete sentences Auscultation: wheezes (Diffuse) Cardio: Rate: regular rate Rhythm: regular rhythm Heart sounds: S1 normal heart sound present, S2 normal heart sound present and no murmurs GI: Inspection: Yes normal to inspection Palpation (GI): Soft to palpation, nontender and no guarding Auscultation: normal bowel sounds : General: Yes no CVA tenderness Back/Spine/Pelvis: Back: no CVA tenderness Skin: General skin exam: no rashes or lesions noted Neuro: General: oriented to person and oriented to place Cranial nerves: Yes CN's II-XII intact bilaterally and Yes Equal, round and reactive pupils present Cognition (Neuro): normal cognition Motor exam (neuro): 5/5 motor strength present throughout Extrem: General: Yes normal to inspection Psych: Appearance: grossly normal Speech and movement: Normal speech and movement present Affect: normal affect Attitude: cooperative Thought process: Normal thought process present Thought content: Normal thought content present Course Course Course Narrative: 40-year-old male who presents emergency department for evaluation of nonproductive cough and shortness of breath x3 days. Patient has a history of asthma he has been using his albuterol inhaler with only minimal relief his symptoms. Vital signs were normal. Lung exam revealed diffuse wheezing otherwise was unremarkable. The patient was treated with an albuterol inhaler 4 puffs with a spacer. He was also given prednisone 60 mg orally. Patient was prescribed prednisone 60 mg once a day for 5 days. He was also prescribed a Flovent steroid inhaler to twice a day. He is also given a prescription for albuterol inhaler. He was advised to get a PCP to help further manage his asthma. Was discharged home with printed and verbal instructions. Discharge Plan Discharge Clinical Impression: Asthma with exacerbation Qualifiers: Asthma severity: moderate Asthma persistence: persistent Qualified Code(s): J45.41 - Moderate persistent asthma with (acute) exacerbation Patient Disposition: Home, Self-Care Instructions: Asthma (ED) Additional Instructions: Your symptoms are caused by a flare-up of your asthma. There are 2 components to asthma. People with asthma get spasm of their bronchial breathing tubes. And people with asthma also get inflammation of their bronchial breathing tubes. Albuterol relieves the spasm but does not treat the inflammation. I am treating the inflammation in your breathing tubes with prednisone 20 mg pills, 3 pills once a day for 5 days. I am also giving you an inhaler that should improve your asthma over time. This inhalers called Flovent. This is an inhaled steroid that she used twice a day. Continue to use your albuterol inhaler 2 puffs every 4 hours as needed for shortness of breath. Follow-up with your doctor in 2 days. Please return to the emergency department if your symptoms get worse or if you develop any symptoms that are concerning to you. Prescriptions: New Flovent HFA 220 mcg/actuation HFA aerosol inhaler 1 puff inhalation BID Qty: 12 RF: 0 prednisone 20 mg tablet 60 mg PO DAILY 5 Days Qty: 15 RF: 0 albuterol sulfate 90 mcg/actuation HFA aerosol inhaler 2 puff inhalation Q4-6H PRN (Reason: bronchospasm) Qty: 8.5 RF: 0 No Action albuterol sulfate 90 mcg/actuation HFA aerosol inhaler 2 inh inhalation Q6-8H PRN (Reason: shortness of breath or wheezing) Qty: 18 RF: 2 prednisone 20 mg tablet 40 mg PO DAILY Qty: 8 RF: 0
[2021-03-21] MEDS: predniSONE 20 MG TABLET 60 MG PO (23:58)
[2021-03-21] MEDS: Albuterol Sulfate 90 MCG 8 GM INHALER 4 PUFF INHALE (23:58)
== END 2021-03-22 00:09 | disposition home or self-care (01) ==
PROVIDERS: Emergency Provider Emergency Medicine Emergency Medical Services
DX: J45.41 Moderate persistent asthma with (acute) exacerbation (principal); R06.02 Shortness of breath; Z79.899 Other long term (current) drug therapy
CPT/HCPCS: 99283; 99284

== ENCOUNTER 2023-10-13 11:44 | Inpatient (IN) | payer MEDICAID, SELFPAY ==
[2023-10-13] VITALS (12 sets, daily range): BP systolic 112–130; BP diastolic 51–74; PULSE 86–113; RESP 16–28; TEMP 36.1–36.9; O2SAT 87–95; BMI 23.8
--- NOTE | ~2023-10-13 | XR_ITS ---
EXAMINATION: XR CHEST CLINICAL INFORMATION: Shortness of breath COMPARISON: Chest x-ray September 16, 2020 TECHNIQUE: Frontal portable view of the chest was obtained. 1:12 PM FINDINGS: No significant abnormality is noted involving the heart, lungs, mediastinum, bony thorax or soft tissues. XR/XR chest 1V IMPRESSION: Unremarkable examination.
--- NOTE | 2023-10-13 11:54 | ECG_ITS ---
Test Reason : SOB Blood Pressure : / mmHG Vent. Rate : 100 BPM Atrial Rate : 100 BPM P-R Int : 132 ms QRS Dur : 088 ms QT Int : 362 ms P-R-T Axes : 056 -66 050 degrees QTc Int : 466 ms Normal sinus rhythm Left anterior fascicular block Cannot rule out Inferior infarct , age undetermined Abnormal ECG When compared with ECG of 16-SEP-2020 14:57, Incomplete right bundle branch block is no longer Present Referred By: Amanda Glynn Electronically Signed By:NIGEL WORKMAN
--- NOTE | 2023-10-13 11:57 | ED_ITS ---
HPI - General Adult General Chief complaint: Asthma Stated complaint: diff breathing Time Seen by Provider: 10/13/23 12:12 Source: patient and family Mode of arrival: ambulatory Limitations: no limitations History of Present Illness ED Provider: ROBI LEIVA narrative: 42 yo male smoker admitted one month ago to [facility] for asthma but could not sleep so he left AMA - no prior intubations, uses friends inhalers comes in with c/o asthma cough dyspnea wheezing x 1 week. No fevers, sputum. Came to ED 87% on RA. MD complaint: asthma Onset (ago): week(s) (1) Location: chest Radiation: non-radiation Severity: moderate Quality: other (tight) Relieving factors: medication and rest Exacerbating factors: other (coughing, exertion) Associated symptoms: cough Treatments prior to arrival: none Related Data Previous Rx's ?Medication ?Instructions ?Recorded albuterol sulfate 90 mcg/actuation 2 inh inhalation Q6-8H PRN 09/18/20 aerosol inhaler shortness of breath or wheezing #18 grams prednisone 20 mg tablet 40 mg (2 x 20 mg) PO DAILY #8 tabs 09/18/20 albuterol sulfate 90 mcg/actuation 2 puff inhalation Q4-6H PRN 03/22/21 aerosol inhaler bronchospasm #8.5 grams fluticasone propionate 220 1 puff inhalation BID #12 grams 03/22/21 mcg/actuation HFA aerosol inhaler (Flovent HFA) prednisone 20 mg tablet 60 mg (3 x 20 mg) PO DAILY 5 days 03/22/21 #15 tabs Allergies Allergy/AdvReac Type Severity Reaction Status Date / Time No Known Allergies Allergy Verified 10/13/23 11:56 Review of Systems 2 Review of Systems: Constitutional : No Fever, No Chills ENT/Mouth : No Hoarseness, No sore throat, No Rhinorrhea Eyes: No Redness, No Discharge, No Vision Changes Cardiovascular : No Chest Pain, positive SOB, positive Dyspnea on Exertion, No Edema Respiratory : positive Cough, No Sputum, positive Wheezing, Gastrointestinal : No Nausea, No Vomiting, No Diarrhea, No abdominal Pain Genitourinary : No Dysuria, No Hematuria Musculoskeletal : No joint pain, No Myalgias Skin : No rash Neuro : No Weakness, No Numbness, No Headache Psych : No anxiety, depression Heme/Lymph: No Bruising, No Bleeding Endocrine : No Polyuria, No Polydipsia All other systems reviewed and are negative [facility] Past Medical History Attestation statement: The following information was validated with the patient. Source: old records reviewed Medical History (Updated 10/13/23 @ 14:16 by Anju Trejo DO) Asthma Pleurisy Social History Social History (Updated 10/13/23 @ 12:36 by Anju Trejo DO) Household Members: Significant Other Housing: Apartment Patient Tobacco Use Status: Current everyday Tobacco user Cigarette Packs Per Day: 1 Cigarettes Per Day: 20.0 Substance Use Type: Prescription Drugs Advance Directives: No Advance Directives Information Provided: Yes service: No Current occupational status: employed Physical Exam ED Vital Signs: Vital Signs - 24 hr 10/13/23 11:54 10/13/23 12:07 10/13/23 12:40 Temperature 97.7 F Pulse Rate 95 88 90 Respiratory Rate 20 17 24 H Blood Pressure 130/63 Pulse Oximetry 87 L 95 Oxygen Delivery Method Room Air Nasal Cannula Oxygen Flow Rate 4 10/13/23 13:11 10/13/23 14:07 Temperature Pulse Rate 88 86 Respiratory Rate 19 18 Blood Pressure 113/57 L Pulse Oximetry 93 Oxygen Delivery Method Nasal Cannula Oxygen Flow Rate 2 BMI result Body Mass Index 23.8 Appearance: Alert. Oriented X3. Mild acute distress. Eyes: Pupils equal, round and reactive to light. ENT: Pharynx normal. Neck: Normal inspection. Neck supple. CVS: Normal heart rate and rhythm. Pulses normal. Respiratory: Mild respiratory distress tachypnea and retractions. Breath sounds both insp and exp wheezes Abdomen: Soft and nontender. Skin: Skin warm and dry. Normal skin color. Normal skin turgor. Extremities: No lower extremity edema. No calf ttp Neuro: Oriented X 3. No motor deficit. No sensory deficit. Course Course Course Narrative: This is an RME done by SUNITA Glynn: Additional HPI, ROS, PE not included below will be deferred to primary provider. 42 yo m hx asthma, smoker presents w/ 6 days sob, coughing while walking and wheezing recently admitted to [facility] for asthma, symptoms worsening ever since he left [facility]. No cp, fevers, chills, nausea, vomiting. No recent sick contacts. 87% on RA 92% on 3 L Speaking to charge to find a bed Appearance: Alert.? Oriented X3.? No acute cardiopulmonary distress distress.? Head: Normocephalic, atraumatic, no step-offs or deformities Neck: Normal inspection.? Neck supple.? CVS: Pulses normal.? Respiratory: + mild respiratory distress b/l wheezing and faint crackles. ? Abdomen: Soft and nontender.? Skin: ? Normal skin color. Extremities: 5/5 strength to bilateral upper and lower extremities Neuro: Oriented X 3.? No motor deficit.? No sensory deficit. Medications Administered Discontinued Medications Generic Name Dose Route Start Last Admin Trade Name Freq PRN Reason Stop Dose Admin Albuterol Sulfate 5 mg/ 7.5 mg 10/13/23 13:06 10/13/23 13:10 Albuterol Sulfate 2.5 mg INHALE 10/13/23 13:07 7.5 mg ONCE ONE Administration Albuterol Sulfate 7.5 mg/ 0 mg 10/13/23 12:18 10/13/23 12:39 Albuterol/Ipratropium 3 ml INHALE 10/13/23 12:19 10 each ONCE ONE Administration Magnesium Sulfate 2 gm in 50 mls @ 25 mls/hr 10/13/23 11:56 10/13/23 12:28 Magnesium Sulfate/H2o IV 10/13/23 13:55 25 mls/hr ONCE ONE Administration Methylprednisolone Sodium Succinate 125 mg 10/13/23 11:56 10/13/23 12:28 Methylprednisolone Sod Succ 125 Mg/2 Ml Vial IVPUSH 10/13/23 11:57 125 mg ONCE ONE Administration Medical Decision Making Medical Decision Making [facility] Narrative: 42 yo male with PMH of asthma no prior intubations here with c/o 1 week of illness no fevers, no sputum he is diffusely wheezy and hypoxic on arrival - IV steroids, IV magnesium, labs, CXR and 10mg hour long neb ordered. He was just admitted at [facility] and left AMA. Differential Diagnosis Differential Diagnoses: The differential diagnosis associated with the presentation includes asthma, bronchitis Admission/Observation Consideration of admission/observation: Escalation of care including admission/observation considered still hypoxic after 2 hour long nebs will admit for further workup Consult Healthcare Provider Management of the patient was discussed with: Hospitalist (will admit) Lab Data [facility] Lab Attestation statement: I reviewed the patient's lab results. 10/13/23 12:15 10/13/23 13:12 Labs: Lab Results 10/13/23 10/13/23 10/13/23 Range/Units 12:10 12:15 13:12 RBC 4.27 L (4.60-5.80) X10*6/uL Hgb 13.7 L (14.0-18.0) g/dl Hct 39.3 L (42.0-52.0) % MCV 92.0 (80.0-98.0) fL MCH 32.1 (27.0-33.0) pg MCHC 34.9 (31.0-36.0) g/dl RDW 12.9 (11.0-16.0) % Plt Count 163 (160-400) X10*3/uL MPV 12.5 H (9.4-12.4) fL Immature Gran % (Auto) Cancelled Neut % (Auto) Cancelled Lymph % (Auto) Cancelled [place] % (Auto) Cancelled Eos % (Auto) Cancelled Baso % (Auto) Cancelled Lymph # (Auto) Cancelled [place] # (Auto) Cancelled Eos # (Auto) Cancelled Baso # (Auto) Cancelled Abs Immat Gran (auto) Cancelled Absolute Neuts (auto) Cancelled Absolute Nucleated RBC 0.000 (0.0-0.012) X10*3/uL Nucleated RBC % (auto) 0.0 (0.0-0.2) /100WBC Neutrophils % (Manual) 59 (45-73) % Lymphocytes % (Manual) 23 (20-40) % Atypical Lymphs % (Man) 1 (0-6) % Monocytes % (Manual) 8 (2-11) % Eosinophils % (Manual) 9 H (0-4) % Platelet Estimate NORMAL (NORMAL) Plt Morphology Comment NORMAL RBC Morphology NORMAL PT 14.1 H (11.1-13.3) SEC INR 1.2 H (0.9-1.1) Sodium 140 (135-145) mmol/L Potassium 3.6 (3.3-5.1) mmol/L Chloride 107 (96-108) mmol/L Carbon Dioxide 25 (22-29) mmol/L Anion Gap 12 (12-20) BUN 6 L (9-16) mg/dL Creatinine 0.73 (0.5-1.4) mg/dL Estim Creat Clear Calc 125.7 Estimated GFR > 60 Random Glucose 115 (60-115) mg/dL Calcium 9.4 (8.4-10.2) mg/dL Magnesium 2.4 (1.6-2.6) mg/dL Total Bilirubin 0.4 (0.0-1.0) mg/dL AST 19 (5-37) U/L ALT 12 (0-40) U/L Alkaline Phosphatase 92 (39-117) U/L Troponin I High Sens < 2.7 (<3.5-35.0) ng/L Total Protein 7.1 (6.5-8.0) g/dL Albumin 4.1 (3.5-5.0) g/dL Influenza Type A (PCR) NEGATIVE (Negative) Influenza Type B (PCR) NEGATIVE (Negative) RSV RNA Qual (PCR) NEGATIVE (Negative) SARS-CoV-2 RNA (RT-PCR) NEGATIVE (Negative) Independent Interpretation I performed an independent interpretation of an: EKG and Plain X-Ray (no pneumonia) Interpretation: Rate: 100 Rhythm: sinus tach [place]: left Normal P waves. Normal TONI. Normal QRS complex. ST T wave : no YOSELIN, nonspecific ST T wave changes ant leads qTC: 466 prior studies: no stemi The study has been interpreted contemporaneously by me. . Radiology Impression Discussion of test interpretation with radiology: I have reviewed the radiologist's reading. Independent Historian Clinical information obtained from an independent historian. History obtained from or confirmed by: Spouse External Record Review External record reviewed: Inpatient record Critical Care Time Critical Care Time Critical Care Time: Yes Total Critical Care Time: 60 Attestation: IV magnesium, labs, CXR and repeat hour long nebs, hypoxia intervention I attest to this time spent taking care of the patient Discharge Plan Discharge Clinical Impression: Asthma with acute exacerbation, Hypoxia Patient Disposition: Admitted As Inpatient Prescriptions: No Action albuterol sulfate 90 mcg/actuation HFA aerosol inhaler 2 inh inhalation Q6-8H PRN (Reason: shortness of breath or wheezing) Qty: 18 2RF prednisone 20 mg tablet 40 mg PO DAILY Qty: 8 0RF Flovent HFA 220 mcg/actuation HFA aerosol inhaler 1 puff inhalation BID Qty: 12 0RF Rx Instructions: administer with spacer prednisone 20 mg tablet 60 mg PO DAILY 5 Days Qty: 15 0RF albuterol sulfate 90 mcg/actuation HFA aerosol inhaler 2 puff inhalation Q4-6H PRN (Reason: bronchospasm) Qty: 8.5 0RF Print Language: [place]
--- NOTE | 2023-10-13 11:59 | PC.NURSE ---
started on 3L NC in waiting room, O2 improved to 92%
--- NOTE | 2023-10-13 12:19 | PC.NURSE ---
Upon auscultation pt very tight with some inspiratory wheezing, respiratory called and at bedside. Pt reports SOB x 6-7 days, hx of asthma and is a smoker. Has a albuterol inhaler prn, no daily medications. Noted to be low 80's in triage, mild increased work of breathing noted.
[2023-10-13 12:21] LABS: Hematocrit 39.3 % (42.0-52.0); Hemoglobin 13.7 g/dl (14.0-18.0); Mean Corpuscular HGB Conc 34.9 g/dl (31.0-36.0); Mean Corpuscular Hemoglobin 32.1 pg (27.0-33.0); Mean Platelet Volume 12.5 fL (9.4-12.4); Platelet Count 163 X10*3/uL (160-400); Red Blood Count 4.27 X10*6/uL (4.60-5.80); Red Cell Distribution Width 12.9 % (11.0-16.0)
[2023-10-13 12:22] LABS: WBC ABN SCTR FOR CBC 1
[2023-10-13 12:27] LABS: INTERNATIONAL NORM RATIO 1.2 (0.9-1.1); Prothrombin Time 14.1 SEC (11.1-13.3)
[2023-10-13] MEDS: methylPREDNISolone Sod Succ 125 MG/2 ML VIAL IVPUSH (12:28)
[2023-10-13] MEDS: Magnesium Sulfate/H2O 2 GM/50 ML PIGGYBACK IV (12:28)
[2023-10-13] MEDS: Albuterol Sulfate 7.5 MG, Albuterol/Iprat 2.5/0.5MG 3 ML 3 ML INHALE (12:39)
[2023-10-13 12:41] LABS: Atypical Lymphs Percent Manual 1 % (0-6); Eosinophils Percent Manual 9 % (0-4); Lymphocytes Percent Manual 23 % (20-40); Monocytes Percent Manual 8 % (2-11); Neutrophils Percent Manual 59 % (45-73)
[2023-10-13 12:43] LABS: Platelet Estimate NORMAL (NORMAL); Platelet Morphology Comment NORMAL; RBC Morphology NORMAL
[2023-10-13 12:44] LABS: Troponin-I High Sensitivity < 2.7 ng/L (<3.5-35.0)
[2023-10-13 13:01] LABS: Influenza A PCR NEGATIVE (Negative); Influenza B PCR NEGATIVE (Negative); Resp Syncy Virus RNA Qual PCR NEGATIVE (Negative); SARS COV2 PCR INHOUSE NEGATIVE (Negative)
[2023-10-13] MEDS: Albuterol Sulfate 5 MG, Albuterol Sulfate (0.083%) 2.5 MG 7.5 MG INHALE (13:10)
[2023-10-13 13:38] LABS: Anion Gap 12 (12-20)
[2023-10-13 13:42] LABS: Alanine Aminotransferase 12 U/L (0-40); Albumin Level 4.1 g/dL (3.5-5.0); Alkaline Phosphatase 92 U/L (39-117); Aspartate Amino Transferase 19 U/L (5-37); Bilirubin Total 0.4 mg/dL (0.0-1.0); Blood Urea Nitrogen 6 mg/dL (9-16); Calcium 9.4 mg/dL (8.4-10.2); Carbon Dioxide 25 mmol/L (22-29); Chloride 107 mmol/L (96-108); Creatinine Clr Calc Pharmacy 125.7; Estimated Glomerular Filt Rate > 60; Glucose Random 115 mg/dL (60-115); Magnesium 2.4 mg/dL (1.6-2.6); Potassium 3.6 mmol/L (3.3-5.1); Sodium 140 mmol/L (135-145); Total Protein 7.1 g/dL (6.5-8.0)
[2023-10-13 14:20] LABS: Atypical Lymph Absolute Manual 0.1 x10*3/uL; Eosinophils Absolute Manual 0.6 X10*3/uL (0.0-0.4); Lymphocytes Absolute Manual 1.6 X10*3/uL (1.2-4.9); Monocytes Absolute Manual 0.6 X10*3/uL (0.1-1.2); White Blood Count 7.1 X10*3/uL (4.8-10.8)
[2023-10-13 14:22] LABS: Band Neutrophils Percent 0 % (3-5); Neutrophils Absolute Manual 4.2 X10*3/uL (2.0-8.3)
--- NOTE | 2023-10-13 14:23 | P.HPHOSP_ITS ---
History of Present Illness Date of Service: 10/13/23 Chief Complaint: Dyspnea This is a 42-year-old male with pertinent history of mild persistent asthma not on home oxygen, tobacco use disorder who presents to the emergency department for evaluation of dyspnea. Patient states his symptoms started 5 days prior to presentation. He has been having shortness of breath which is worse with exertion. Also has associated nonproductive cough and wheezing. Patient tried home inhaler without any relief. Patient admits to smoking 1 pack of cigarettes every day but states he has not smoked in the last 7 days due to dyspnea. No fever, chills, chest discomfort, palpitations, abdominal pain, changes in urinary or bowel habits. In the emergency department, patient requiring 2 L supplemental oxygen and wheezing despite multiple DuoNeb treatments Review of Systems 2 Constitutional: Constitutional: Reports fatigue, Reports lethargy, Reports poor appetite and Reports weakness Cardiovascular: Cardiovascular: Reports dyspnea on exertion Respiratory: Respiratory: Reports cough, Reports dyspnea on exertion and Reports wheezing Gastrointestinal: Gastrointestinal: Reports no additional gastrointestinal complaints Genitourinary: Genitourinary: Reports no additional male genitourinary complaints Neurologic: Reports weakness Endocrine: Endocrine: Reports fatigue Allergic/Immunologic: Allergic/Immunologic: Reports wheezing [facility] Medical History Asthma Pleurisy Social History Household Members: Significant Other Housing: Apartment Patient Tobacco Use Status: Current everyday Tobacco user Cigarette Packs Per Day: 1 Cigarettes Per Day: 20.0 Substance Use Type: Prescription Drugs service: No Current occupational status: employed Meds Allergies Allergy/AdvReac Type Severity Reaction Status Date / Time No Known Allergies Allergy Verified 10/13/23 11:56 Home Medications ?Medication ?Instructions ?Recorded ?Confirmed ?Last Taken ?Type albuterol sulfate 90 mcg/actuation 2 puff inhalation Q6H PRN 10/13/23 10/13/23 Unknown History aerosol inhaler bronchospasm Physical Exam 2 Vital Signs and Narrative: Vital Signs: Last Vital Signs Temp 97.7 F 10/13/23 11:54 Pulse 86 10/13/23 14:07 Resp 18 10/13/23 14:07 BP 113/57 L 10/13/23 14:07 Pulse Ox 93 10/13/23 14:07 O2 Del Method Nasal Cannula 10/13/23 14:07 O2 Flow Rate 2 10/13/23 14:07 BMI result Body Mass Index 23.8 Middle-aged male lying in bed in mild distress on supplemental oxygen Neck supple, no JVD Regular rate and rhythm, S1-S2 heard Bilateral wheezing without crackles Abdomen soft nontender, no guarding, no rigidity Patient is awake, alert and oriented to self, place, time and person ; no focal motor deficit Psych: Normal mood No pedal edema Results Labs 10/13/23 12:15 10/13/23 13:12 Labs: Laboratory Results - last 24 hr 10/13/23 10/13/23 10/13/23 12:10 12:15 13:12 MCV 92.0 MCH 32.1 MCHC 34.9 RDW 12.9 Plt Count 163 MPV 12.5 H Immature Gran % (Auto) Cancelled Neut % (Auto) Cancelled Lymph % (Auto) Cancelled [place] % (Auto) Cancelled Eos % (Auto) Cancelled Baso % (Auto) Cancelled Lymph # (Auto) Cancelled [place] # (Auto) Cancelled Eos # (Auto) Cancelled Baso # (Auto) Cancelled Abs Immat Gran (auto) Cancelled Absolute Neuts (auto) Cancelled Absolute Nucleated RBC 0.000 Nucleated RBC % (auto) 0.0 Neutrophils % (Manual) 59 Band Neutrophils % 0 L Lymphocytes % (Manual) 23 Atypical Lymphs % (Man) 1 Monocytes % (Manual) 8 Eosinophils % (Manual) 9 H Abs Neuts (Manual) 4.2 Lymphocytes # (Manual) 1.6 Atyp Lymphs # (Manual) 0.1 Monocytes # (Manual) 0.6 Eosinophils # (Manual) 0.6 H Platelet Estimate NORMAL Plt Morphology Comment NORMAL RBC Morphology NORMAL PT 14.1 H INR 1.2 H Anion Gap 12 Estim Creat Clear Calc 125.7 Estimated GFR > 60 Random Glucose 115 Calcium 9.4 Magnesium 2.4 Total Bilirubin 0.4 AST 19 ALT 12 Alkaline Phosphatase 92 Troponin I High Sens < 2.7 Total Protein 7.1 Albumin 4.1 Influenza Type A (PCR) NEGATIVE Influenza Type B (PCR) NEGATIVE RSV RNA Qual (PCR) NEGATIVE SARS-CoV-2 RNA (RT-PCR) NEGATIVE Assessment and Plan (1) Asthma with acute exacerbation: Qualifiers: Asthma persistence: persistent Asthma severity: moderate Qualified Code(s): J45.41 - Moderate persistent asthma with (acute) exacerbation Status: Acute (2) Hypoxia: Status: Acute Plan This is a 42-year-old male with pertinent history of mild persistent asthma not on home oxygen, tobacco use disorder who presents to the emergency department for evaluation of dyspnea. #. Acute hypoxemic respiratory failure due to acute exacerbation of asthma: Will admit patient with supplemental oxygen. Initiating IV steroids. Scheduled and p.r.n. DuoNebs. Continue supplemental oxygen and wean as tolerated. No bacterial superinfection #. Tachycardia and tachypnea due to above. No sepsis #. Tobacco use disorder: Counseled regarding cessation. Refused nicotine patch DVT prophylaxis: Lovenox Full code Admit as inpatient and will require two night minimum hospital stay for supplemental oxygen (as above), which is not possible in a lesser acute setting. Quality Stroke Does the patient have a stroke diagnosis?: No VTE Prior VTE?: No VTE Risk Level:: Medical - moderate - high VTE Device Contraindication: Treatment Not Indicated VTE Drug Contraindication: N/A - Med Ordered
--- NOTE | 2023-10-13 14:54 | PHA.MEDREC ---
Pharmacy Consult ? Medication Reconciliation Pharmacy has completed the medication reconciliation. Patient states they had no idea that atorvastatin 40 mg and ASA 81 mg were prescribed for them, so they were not taking either medication. Only taking albuterol prn.
[2023-10-13] MEDS: guaiFEN/Codeine SF 200/20/10ML 10 ML LIQUID 5 ML PO (15:33)
[2023-10-13] MEDS: 0.9 % Sodium Chloride Flush 3 ML SYRINGE IVFLUSH (15:33)
[2023-10-13] MEDS: Albuterol/Iprat 2.5/0.5MG 3 ML AMPUL.NEB INHALE ×2 (16:14→19:03)
--- NOTE | 2023-10-13 18:53 | MHC.EDTECH ---
Patient given dinner tray
[2023-10-14] VITALS (8 sets, daily range): BP systolic 107–128; BP diastolic 55–64; PULSE 73–99; RESP 12–20; TEMP 36.1–36.9; O2SAT 93–100
[2023-10-14] MEDS: methylPREDNISolone Sod Succ 40 MG/ML VIAL IVPUSH ×2 (06:22→18:17)
[2023-10-14 06:23] LABS: MANUAL DIFF FLAG NO
[2023-10-14 06:30] LABS: Basophils Percent Auto 0.1 % (0-2); Hematocrit 38.9 % (42.0-52.0); Hemoglobin 13.4 g/dl (14.0-18.0); Imm Gran Abs Auto 0.06 X10*3/uL (0.00-0.03); Imm Gran Pct Auto 0.4 % (0.0-0.4); Lymphocytes Absolute Auto 1.3 X10*3/uL (1.2-4.9); Lymphocytes Percent Auto 7.8 % (20-40); Mean Corpuscular HGB Conc 34.4 g/dl (31.0-36.0); Mean Corpuscular Volume 92.8 fL (80.0-98.0); Mean Platelet Volume 12.7 fL (9.4-12.4); Monocytes Absolute Auto 1.2 X10*3/uL (0.1-1.2); Monocytes Percent Auto 7.5 % (2-11); Neutrophils Absolute Auto 13.5 x10*3/uL (2.0-8.3); Neutrophils Percent Auto 84.2 % (45-73); Platelet Count 167 X10*3/uL (160-400); Red Blood Count 4.19 X10*6/uL (4.60-5.80); Red Cell Distribution Width 12.9 % (11.0-16.0)
[2023-10-14 06:43] LABS: Anion Gap 11 (12-20); Blood Urea Nitrogen 15 mg/dL (9-16); Calcium 9.9 mg/dL (8.4-10.2); Carbon Dioxide 27 mmol/L (22-29); Chloride 104 mmol/L (96-108); Creatinine Clr Calc Pharmacy 129.3; Estimated Glomerular Filt Rate > 60; Glucose Random 111 mg/dL (60-115); Potassium 5.5 mmol/L (3.3-5.1); Sodium 136 mmol/L (135-145)
[2023-10-14] MEDS: 0.9 % Sodium Chloride Flush 3 ML SYRINGE IVFLUSH ×3 (07:32→19:17)
[2023-10-14] MEDS: Albuterol/Iprat 2.5/0.5MG 3 ML AMPUL.NEB INHALE ×4 (07:37→20:14)
--- NOTE | 2023-10-14 09:11 | P.CDIM_ITS ---
PROVIDER RESPONSE TEXT: To clarify, the appropriate diagnosis supported by the clinical indicators: Mild persistent: with exacerbation QUERY TEXT: PHYSICIAN'S DOCUMENTATION REQUEST Date of Query: 10/14/2023 08:56 AM EDT Patient Name: Edison Leal Admit Date: 10/13/2023 Dear Tremayne Murry MD, A review of the medical record indicates additional documentation may be needed. Please review below and update the documentation accordingly. Clinical indicators: H&P Assessment and plan: Moderate persistent Asthma with exacerbation Plan: PMH of mild persistent asthma not on home oxygen. Acute hypoxic respiratory failure due to acute exacerbation of asthma. Based on the above, please clarify in the Progress Notes further specificity regarding the type of th e asthma: Mild persistent Please specify if with or without acute exacerbation or status asthmaticus Moderate persistent Please specify if with or without acute exacerbation or status asthmaticus Severe persistent Please specify if with or without acute exacerbation or status asthmaticus Other (explain) Clinically unable to determine (explain) Thank you, Brandy Richard, CCS, CDIS Use of terms such as suspected, likely, concern for, or probable (associated with a specific diagnosi s that is being evaluated, monitored, or treated as if it exists) are acceptable and can be coded in the inpatient se tting, when documented at the time of discharge. Please use your independent medical judgment in providing your response. THIS QUERY IS PART OF THE PERMANENT MEDICAL RECORD
--- NOTE | 2023-10-14 09:13 | MHC.CM.PN ---
Patient lives in a home w/ his mother. Functionally independent. Denies use of services or DME. Does not have a nebulizer. No PCP. [facility] Provider brochure provided. Patient will call to schedule and understands the importance of establishing care w/ PCP. Reports he has an HCP w/ sister Birgit listed as HCA. CM will request copy from [facility]. DP: Goal is home self care. Family to transport. CM will continue to follow.
--- NOTE | 2023-10-14 10:26 | P.PNIM_ITS ---
Subjective Subjective Date of Service: 10/14/23 Interval History: Breathing better although continues to have expiratory wheezing. On 2 L supplemental oxygen Constitutional Constitutional: Reports fatigue, Reports lethargy, Reports poor appetite and Reports weakness Cardiovascular Cardiovascular: Reports dyspnea on exertion Respiratory Respiratory: Reports cough, Reports dyspnea on exertion and Reports wheezing Gastrointestinal Gastrointestinal: Reports no additional gastrointestinal complaints Genitourinary Genitourinary: Reports no additional male genitourinary complaints Neurologic Neurologic: Reports weakness Endocrine Endocrine: Reports fatigue Allergic/Immunologic Allergic/Immunologic: Reports wheezing Physical Exam 2 Vital Signs: Vital Signs: Last Vital Signs Temp 97.6 F 10/14/23 07:41 Pulse 75 10/14/23 07:41 Resp 18 10/14/23 07:41 BP 123/55 L 10/14/23 07:41 Pulse Ox 100 10/14/23 07:41 O2 Del Method Nasal Cannula 10/14/23 07:41 O2 Flow Rate 2 10/14/23 07:41 BMI result Body Mass Index 23.8 Middle-aged male lying in bed in mild distress on supplemental oxygen Neck supple, no JVD Regular rate and rhythm, S1-S2 heard Bilateral wheezing without crackles Abdomen soft nontender, no guarding, no rigidity Patient is awake, alert and oriented to self, place, time and person ; no focal motor deficit Psych: Normal mood No pedal edema Objective Data Active Medications Acetaminophen (Acetaminophen 325 Mg Tablet) 650 mg PO Q6H PRN PRN Reason: Pain, Mild (Pain Scale 1-3) Albuterol/Ipratropium (Albuterol/Iprat 2.5/0.5mg 3 Ml Ampul.Neb) 3 ml INHALE RQ4H WHILE AWAKE [facility] Last Admin: 10/14/23 07:37 Dose: 3 ml Documented By: MERRITT Albuterol/Ipratropium (Albuterol/Iprat 2.5/0.5mg 3 Ml Ampul.Neb) 3 ml INHALE Q4H PRN PRN Reason: Wheezing Enoxaparin Sodium (Enoxaparin Sodium 40 Mg/0.4 Ml Syringe) 40 mg SUBCUT Q24H [facility] Last Admin: 10/13/23 14:47 Dose: Not Given Documented By: KISHA Non-Admin Reason: Patient Refused Melatonin (Melatonin 3 Mg Tablet) 6 mg PO BEDTIME PRN PRN Reason: Insomnia Methylprednisolone Sodium Succinate (Methylprednisolone Sod Succ 40 Mg/Ml Vial) 40 mg IVPUSH Q12H [facility] Last Admin: 10/14/23 06:22 Dose: 40 mg Documented By: RYLAN Ondansetron HCl (Ondansetron Hcl 4 Mg/2 Ml Vial) 4 mg IVPUSH Q8H PRN PRN Reason: Nausea and Vomiting Sodium Chloride (0.9 % Sodium Chloride Flush 3 Ml Syringe) 3 ml IVFLUSH QSHIFT [facility] Last Admin: 10/14/23 07:32 Dose: 3 ml Documented By: KARIME Labs 10/14/23 06:00 10/14/23 06:00 Labs: Laboratory Results - last 24 hr 10/13/23 10/13/23 10/13/23 12:10 12:15 13:12 MCV 92.0 MCH 32.1 MCHC 34.9 RDW 12.9 Plt Count 163 MPV 12.5 H Immature Gran % (Auto) Cancelled Neut % (Auto) Cancelled Lymph % (Auto) Cancelled [place] % (Auto) Cancelled Eos % (Auto) Cancelled Baso % (Auto) Cancelled Lymph # (Auto) Cancelled [place] # (Auto) Cancelled Eos # (Auto) Cancelled Baso # (Auto) Cancelled Abs Immat Gran (auto) Cancelled Absolute Neuts (auto) Cancelled Absolute Nucleated RBC 0.000 Nucleated RBC % (auto) 0.0 Neutrophils % (Manual) 59 Band Neutrophils % 0 L Lymphocytes % (Manual) 23 Atypical Lymphs % (Man) 1 Monocytes % (Manual) 8 Eosinophils % (Manual) 9 H Abs Neuts (Manual) 4.2 Lymphocytes # (Manual) 1.6 Atyp Lymphs # (Manual) 0.1 Monocytes # (Manual) 0.6 Eosinophils # (Manual) 0.6 H Platelet Estimate NORMAL Plt Morphology Comment NORMAL RBC Morphology NORMAL PT 14.1 H INR 1.2 H Anion Gap 12 Estim Creat Clear Calc 125.7 Estimated GFR > 60 Random Glucose 115 Calcium 9.4 Magnesium 2.4 Total Bilirubin 0.4 AST 19 ALT 12 Alkaline Phosphatase 92 Troponin I High Sens < 2.7 Total Protein 7.1 Albumin 4.1 Influenza Type A (PCR) NEGATIVE Influenza Type B (PCR) NEGATIVE RSV RNA Qual (PCR) NEGATIVE SARS-CoV-2 RNA (RT-PCR) NEGATIVE 10/14/23 06:00 MCV 92.8 MCH 32.0 MCHC 34.4 RDW 12.9 Plt Count 167 MPV 12.7 H Immature Gran % (Auto) 0.4 Neut % (Auto) 84.2 H Lymph % (Auto) 7.8 L [place] % (Auto) 7.5 Eos % (Auto) 0.0 Baso % (Auto) 0.1 Lymph # (Auto) 1.3 [place] # (Auto) 1.2 Eos # (Auto) 0.0 Baso # (Auto) 0.0 Abs Immat Gran (auto) 0.06 H Absolute Neuts (auto) 13.5 H Absolute Nucleated RBC 0.000 Nucleated RBC % (auto) 0.0 Neutrophils % (Manual) Band Neutrophils % Lymphocytes % (Manual) Atypical Lymphs % (Man) Monocytes % (Manual) Eosinophils % (Manual) Abs Neuts (Manual) Lymphocytes # (Manual) Atyp Lymphs # (Manual) Monocytes # (Manual) Eosinophils # (Manual) Platelet Estimate Plt Morphology Comment RBC Morphology PT INR Anion Gap 11 L Estim Creat Clear Calc 129.3 Estimated GFR > 60 Random Glucose 111 Calcium 9.9 Magnesium Total Bilirubin AST ALT Alkaline Phosphatase Troponin I High Sens Total Protein Albumin Influenza Type A (PCR) Influenza Type B (PCR) RSV RNA Qual (PCR) SARS-CoV-2 RNA (RT-PCR) Assessment and Plan (1) Asthma with acute exacerbation: Status: Acute Plan This is a 42-year-old male with pertinent history of mild persistent asthma not on home oxygen, tobacco use disorder who presents to the emergency department for evaluation of dyspnea. #. Acute hypoxemic respiratory failure due to acute exacerbation of asthma: Continue IV steroids. Scheduled and p.r.n. DuoNebs. Continue supplemental oxygen and wean as tolerated. Currently on 2 L #. Tachycardia and tachypnea due to above. No sepsis #. Leukocytosis, likely reactive in the setting of steroid use. No bands. No productive cough or fever. Defer antibiotics for now #. Tobacco use disorder: Counseled regarding cessation. Refused nicotine patch DVT prophylaxis: Lovenox Full code Reason for continued hospitalization: supplemental oxygen, wheezing Quality Stroke Does the patient have a stroke diagnosis?: No VTE Prior VTE?: No VTE Risk Level:: Medical - moderate - high VTE Device Contraindication: Treatment Not Indicated VTE Drug Contraindication: N/A - Med Ordered
[2023-10-14] MEDS: guaiFEN/Codeine SF 200/20/10ML 10 ML LIQUID 5 ML PO ×2 (12:34→19:16)
[2023-10-14] MEDS: Enoxaparin Sodium 40 MG/0.4 ML SYRINGE SUBCUT (15:43)
[2023-10-15 03:12] VITALS: BP 103/53; PULSE 57; RESP 18; TEMP 36.1; O2SAT 94
[2023-10-15] MEDS: methylPREDNISolone Sod Succ 40 MG/ML VIAL IVPUSH (06:03)
[2023-10-15] MEDS: guaiFEN/Codeine SF 200/20/10ML 10 ML LIQUID 5 ML PO (06:06)
[2023-10-15 06:54] LABS: MANUAL DIFF FLAG NO
[2023-10-15 07:00] LABS: Basophils Percent Auto 0.1 % (0-2); Eosinophils Percent Auto 0.1 % (0-4); Hemoglobin 13.9 g/dl (14.0-18.0); Imm Gran Abs Auto 0.07 X10*3/uL (0.00-0.03); Imm Gran Pct Auto 0.4 % (0.0-0.4); Lymphocytes Absolute Auto 1.5 X10*3/uL (1.2-4.9); Lymphocytes Percent Auto 8.9 % (20-40); Mean Corpuscular HGB Conc 33.9 g/dl (31.0-36.0); Mean Corpuscular Hemoglobin 31.5 pg (27.0-33.0); Mean Platelet Volume 12.4 fL (9.4-12.4); Monocytes Percent Auto 5.7 % (2-11); Neutrophils Absolute Auto 14.3 x10*3/uL (2.0-8.3); Neutrophils Percent Auto 84.8 % (45-73); Platelet Count 179 X10*3/uL (160-400); Red Blood Count 4.41 X10*6/uL (4.60-5.80); Red Cell Distribution Width 12.9 % (11.0-16.0); White Blood Count 16.9 X10*3/uL (4.8-10.8)
[2023-10-15 07:23] VITALS: BP 118/63; PULSE 66; RESP 18; TEMP 36.2; O2SAT 93
[2023-10-15] MEDS: 0.9 % Sodium Chloride Flush 3 ML SYRINGE IVFLUSH (07:25)
[2023-10-15 07:32] LABS: Anion Gap 14 (12-20); Blood Urea Nitrogen 17 mg/dL (9-16); Calcium 10.1 mg/dL (8.4-10.2); Carbon Dioxide 28 mmol/L (22-29); Chloride 103 mmol/L (96-108); Creatinine Clr Calc Pharmacy 117.6; Estimated Glomerular Filt Rate > 60; Glucose Random 113 mg/dL (60-115); Potassium 4.4 mmol/L (3.3-5.1); Sodium 141 mmol/L (135-145)
[2023-10-15] MEDS: Albuterol/Iprat 2.5/0.5MG 3 ML AMPUL.NEB INHALE ×2 (08:05→11:06)
[2023-10-15 08:07] VITALS: PULSE 94; RESP 20; O2SAT 94
[2023-10-15 09:02] VITALS: O2SAT 94; O2SAT 96
[2023-10-15 11:08] VITALS: PULSE 86; RESP 20; O2SAT 95
--- NOTE | 2023-10-15 11:44 | PM.DS ---
DS: Providers Provider Date of Service: 10/15/23 Date of admission: 10/13/23 14:22 Primary care physician: None Physician DS: Diagnosis Discharge Diagnosis (1) Asthma with acute exacerbation: Status: Acute DS: Summary Hospital Course Hospital Course: History of presenting illness: Date of Service: 10/13/23 Chief Complaint: Dyspnea This is a 42-year-old male with pertinent history of mild persistent asthma not on home oxygen, tobacco use disorder who presents to the emergency department for evaluation of dyspnea. Patient states his symptoms started 5 days prior to presentation. He has been having shortness of breath which is worse with exertion. Also has associated nonproductive cough and wheezing. Patient tried home inhaler without any relief. Patient admits to smoking 1 pack of cigarettes every day but states he has not smoked in the last 7 days due to dyspnea. No fever, chills, chest discomfort, palpitations, abdominal pain, changes in urinary or bowel habits. In the emergency department, patient requiring 2 L supplemental oxygen and wheezing despite multiple DuoNeb treatments. Hospital course: 42-year-old gentleman with past medical history of asthma , using home inhalers borrowed by friends and family admitted with acute exacerbation of mild persistent asthma complicated by hypoxia patient treated with bronchodilators and IV steroids patient responded well to above treatment hypoxia resolved patient denies chest tightness or shortness of breath or persistent cough, denies allergy symptoms, he is being discharged home on short course of prednisone recommended to use albuterol MDI 2 puffs as needed for shortness of breath and take Breo 1 puff daily recommend outpatient follow-up with primary care physician and strongly recommend to abstain from smoking patient declined nicotine patch. Time Attestation Discharge Coordination Time (in mins): 34 Quality: Safe Use of Opioids Does Pt have an Active Cancer Diagnosis on the Problem List?: No Quality: Stroke Does the patient have a stroke diagnosis?: No Physical Exam Vital Signs: Vital Signs: Last Vital Signs Temp 97.2 F 10/15/23 07:23 Pulse 86 10/15/23 11:08 Resp 20 10/15/23 11:08 BP 118/63 10/15/23 07:23 Pulse Ox 96 10/15/23 09:02 O2 Del Method Room Air 10/15/23 09:02 O2 Flow Rate 2 10/15/23 07:23 BMI result Body Mass Index 23.8 Const: Other: General awake alert x3, in no acute distress. Neck supple no JVD. CVS regular rate rhythm, Respiratory lungs clear to auscultation, no respiratory distress, no wheeze, no rhonchi. Gastrointestinal abdomen soft, non tender, bowel sounds audible, no guarding , no rigidity. Extremities no edema. Neuro non focal Skin no rash Psych appropriate affect DS: Data Data Completed and Pending Labs on day of discharge: Laboratory Results - last 24 hr 10/15/23 06:40 WBC 16.9 H RBC 4.41 L Hgb 13.9 L Hct 41.0 L MCV 93.0 MCH 31.5 MCHC 33.9 RDW 12.9 Plt Count 179 MPV 12.4 Immature Gran % (Auto) 0.4 Neut % (Auto) 84.8 H Lymph % (Auto) 8.9 L [place] % (Auto) 5.7 Eos % (Auto) 0.1 Baso % (Auto) 0.1 Lymph # (Auto) 1.5 [place] # (Auto) 1.0 Eos # (Auto) 0.0 Baso # (Auto) 0.0 Abs Immat Gran (auto) 0.07 H Absolute Neuts (auto) 14.3 H Absolute Nucleated RBC 0.000 Nucleated RBC % (auto) 0.0 Sodium 141 Potassium 4.4 Chloride 103 Carbon Dioxide 28 Anion Gap 14 BUN 17 H Creatinine 0.78 Estim Creat Clear Calc 117.6 Estimated GFR > 60 Random Glucose 113 Calcium 10.1 Discharge Plan Discharge Anticipated Discharge Date/Time: 10/15/23 11:38 Patient Disposition: Home, Self-Care Discharge Diagnosis: Acute hypoxic respiratory failure due to acute exacerbation of mild persistent asthma Referrals: Physician,None [Primary Care Provider] - 1 Week Discharge Medications: New fluticasone furoate-vilanterol [Breo Ellipta] 100-25 mcg/dose Blister With Device 1 inh inhalation RDAILY Qty: 60 0RF prednisone 20 mg tablet 20 mg PO DAILY Qty: 5 0RF Changed albuterol sulfate 90 mcg/actuation HFA aerosol inhaler 2 puff inhalation Q4H PRN (Reason: bronchospasm) Qty: 1 0RF Discharge Orders: Discharge Order (Routine); Ordered 10/15/23 Ordered By: Jose Zacarias Diet: Advance to usual diet Activity on Discharge: As tolerated Stand Alone Forms: Patient Portal Discharge page Print Language: [place]i Care Plan Goals: Take prednisone 20 mg daily with food for 5 days Take Breo 1 puff daily Albuterol MDI 2 puffs every 4 hours as needed for shortness of breath/chest tightness Take cough syrup every 4-6 hours as needed Avoid allergens Returned to check with recurrent symptoms of shortness Health Concerns: Tobacco use disorder patient declined patch recommend to completely from smoking Plan of Treatment: Follow-up with primary care physician call for appointment in 1-2 weeks Assessment: As above
[2023-10-15] MEDS: Fluticasone/Vilanterol 100/25 BLST.W.DEV 1 PUFF INHALE (12:23)
--- NOTE | 2023-10-15 12:25 | MHC.CM.PN ---
PT WILL DC HOME TODAY WITH NO SERVICES VIA FAMILY TRANSPORT
== END 2023-10-15 12:47 | disposition home or self-care (01) | DRG 141 ==
LOC: HO.ED 14:16 → HO.EDOVER 14:29 → HO.S3 20:05
PROVIDERS: Physician Assistant; Admitting Provider Student in an Organized Health Care Education/Training Program; Emergency Provider Emergency Medicine; Visit Provider Hospitalist
DX: J45.31 Mild persistent asthma with (acute) exacerbation (principal); J96.01 Acute respiratory failure with hypoxia; F17.210 Nicotine dependence, cigarettes, uncomplicated; R00.0 Tachycardia, unspecified; Z71.6 Tobacco abuse counseling; Z20.822 Contact with and (suspected) exposure to COVID-19
CPT/HCPCS: 0241U; 36415; 71045; 80048; 80053; 83735; 84484; 85007; 85025; 85027; 85610; 93005; 94640; 96365; 96366; 96372; 96375; 96376; 99221; 99285; J1650; J2919; J3475

== ENCOUNTER → 2023-10-13 11:54 | Outpatient (BNV) | payer MEDICAID, SELFPAY | PROVIDERS: Admitting Provider Student in an Organized Health Care Education/Training Program; Emergency Provider Emergency Medicine; Visit Provider Internal Medicine | DX: I44.4 Left anterior fascicular block (principal); R94.31 Abnormal electrocardiogram [ECG] [EKG] | CPT/HCPCS: 93010 ==

== ENCOUNTER → 2023-10-13 14:22 | Outpatient (BNV) | payer MEDICAID, SELFPAY | PROVIDERS: Admitting Provider Student in an Organized Health Care Education/Training Program; Emergency Provider Emergency Medicine; Visit Provider Student in an Organized Health Care Education/Training Program | DX: J45.41 Moderate persistent asthma with (acute) exacerbation (principal) | CPT/HCPCS: 99222; 99232; 99239 ==